=== PATIENT | male | born 1970 | race Caucasian/White ===

== ENCOUNTER → 2019-08-29 | Outpatient (REF) | payer OTHER | LOC: M SFHCCLAY 09:12 | PROVIDERS: ATTEND Family Medicine | DX: Z53.9 Procedure and treatment not carried out, unspecified reason (principal); Z00.00 Encounter for general adult medical examination without abnormal findings; Z98.84 Bariatric surgery status ==

== ENCOUNTER → 2019-08-29 | Outpatient (CLI) | payer OTHER ==
--- NOTE | 2019-08-29 10:59 | REP ---
Chest x-ray: Two views. History: Cough. The no comparison study. Findings: The lungs are well inflated and clear. The pleural angles are sharp. Heart size is normal. Pulmonary vasculature is not increased. No bony abnormalities seen. Impression: Negative chest x-ray. No infiltrate seen. Electronically Signed by Howard Sharpe MD 08/29/2019 10:51 A
== END ==
LOC: M CLY 10:38
PROVIDERS: ATTEND Family Medicine
DX: R05 Cough (principal)

== ENCOUNTER → 2019-09-29 | Outpatient (CLI) | payer OTHER ==
--- NOTE | 2019-10-11 05:57 | REP ---
Clinical: Lung nodule. Technique: Axial noncontrast images from the thoracic inlet to the upper abdomen with coronal and sagittal re-formations. Comparison: 08/14/2013 (outside examination) . Findings: The bilateral lung spears are relatively well aerated, symmetric and essentially clear. 5 mm non solid density in the periphery of the right lower lobe (image 62) is again noted and essentially unchanged in morphology. No further consolidation, significant nodule or mass lesion appreciated. No pleural effusion. No pneumothorax. Tracheobronchial tree is patent. No obvious adenopathy. The mediastinum demonstrates normal thoracic aorta, pulmonary vasculature and heart/pericardium. Surrounding musculoskeletal structures are intact. Limited upper abdomen demonstrates normal bilateral adrenal glands along with findings to suggest hepatic steatosis. Impression: 1. No acute mediastinal or pleuroparenchymal process appreciated. 2. 5 mm non solid density in the periphery of the right lower lobe remains stable as compared to 2013. No new nodule or mass lesion. Electronically Signed by Elmer Gallego MD 10/11/2019 05:48 A
== END ==
LOC: M RAD 07:45
PROVIDERS: ATTEND Family Medicine
DX: Z87.898 Personal history of other specified conditions (principal); R91.8 Other nonspecific abnormal finding of lung field

== ENCOUNTER → 2021-03-05 | Outpatient (CLI) | payer OTHER ==
[~2021-03-05] MED LIST: CAND16TA2; NOXI1TAB PO; VITATAB64 PO; VITMTA PO
--- NOTE | 2021-03-05 16:22 | REP ---
INDICATION: ELEVATED FERITIN LEVELS. COMPARISON: None. TECHNIQUE: 3T multiplanar MRI imaging of the liver was obtained using various sequences. FINDINGS: There is no abnormal liver signal "dropout" on inphase imaging. The signal throughout the liver is within normal limits. There are no filling defects seen within the gallbladder. There are a few incidental bilateral subcentimeter sized renal cysts. The pancreas and adrenal glands are within normal limits. The cortical marrow signal seen throughout the imaged osseous structures is within normal limits. There is no free fluid in the abdomen. There is no evidence of adenopathy. No pleural effusions are seen in the imaged lung spears. IMPRESSION: MRI findings are within normal limits. There is no evidence of hemochromatosis or acute disease. <Electronically signed by Karthik Lawson > 03/05/21 [id number]
== END ==
LOC: M RAD 14:16
PROVIDERS: ATTEND Specialist
DX: E83.119 Hemochromatosis, unspecified (principal)

== ENCOUNTER → 2022-04-13 | Outpatient (REF) | payer OTHER ==
[2022-04-13 11:28] LABS: HEMATOCRIT 45.3 % (42.0-52.0); HEMOGLOBIN 15.6 g/dl (13.5-17.5); MEAN CORPUSCULAR HEMOGLOBIN 33.5 pg (27.0-33.0); MEAN CORPUSCULAR HGB CONC 34.4 g/dl (32.0-36.5); MEAN CORPUSCULAR VOLUME 97.2 fl (80.0-96.0); PLATELET COUNT, AUTOMATED 217 10^3/uL (150-450); RED BLOOD COUNT 4.66 10^6/uL (4.30-6.10); WHITE BLOOD COUNT 5.1 10^3/uL (4.0-10.0)
[2022-04-13 12:04] LABS: ALT/SGPT 50 U/L (7.0-40); BILIRUBIN,TOTAL 0.6 MG/DL (0.3-1.2); BLOOD UREA NITROGEN 7 MG/DL (9-23); CARBON DIOXIDE LEVEL 29 MMOL/L (20-31); CHLORIDE LEVEL 103 MMOL/L (98-107); CHOLESTEROL LEVEL 135 MG/DL (<200); CREATININE FOR GFR 0.79 MG/DL (0.70-1.30); FREE T4 0.99 NG/DL (0.89-1.76); GLOMERULAR FILTRATION RATE > 60.0 (>56); GLUCOSE, FASTING 100 MG/DL (60-100); LDL CHOLESTEROL 80.8 MG/DL (<100); NON-HDL-C 105 MG/DL; PTH INTACT 63.1 PG/ML (18.5-88.0); SODIUM LEVEL 141 MMOL/L (136-145); THYROID STIMULATING HORMONE 1.928 uIU/ML (0.55-4.78); TRIGLYCERIDES LEVEL 121 MG/DL (<150); VITAMIN B12 LEVEL 558 PG/ML (211-911)
[2022-04-13 12:13] LABS: MAU/CREAT RATIO 2.8 MCG/MG (0.0-30.0)
[2022-04-13 12:26] LABS: HEMOGLOBIN A1c 5.2 % (4.0-6.0)
== END ==
LOC: M SFHCCLAY 07:07
PROVIDERS: ATTEND Family Medicine
DX: Z98.84 Bariatric surgery status (principal); E11.9 Type 2 diabetes mellitus without complications; I10 Essential (primary) hypertension; Z12.5 Encounter for screening for malignant neoplasm of prostate

== ENCOUNTER → 2023-08-16 | Outpatient (REF) | payer OTHER ==
[~2023-08-16] MED LIST changes: +ASCO500C3 PO; +ZINC220CA PO
[2023-08-16 12:12] LABS: HEMATOCRIT 47.9 % (42.0-52.0); HEMOGLOBIN 16.8 g/dl (13.5-17.5); MEAN CORPUSCULAR HEMOGLOBIN 33.1 pg (27.0-33.0); MEAN CORPUSCULAR HGB CONC 35.1 g/dl (32.0-36.5); MEAN CORPUSCULAR VOLUME 94.5 fl (80.0-96.0); PLATELET COUNT, AUTOMATED 217 10^3/uL (150-450); RED BLOOD COUNT 5.07 10^6/uL (4.30-6.10); WHITE BLOOD COUNT 5.4 10^3/uL (4.0-10.0)
[2023-08-16 12:33] LABS: HEMOGLOBIN A1c 5.3 % (4.0-6.0)
[2023-08-16 12:41] LABS: CREATININE, URINE 165.1 MG/DL; MAU/CREAT RATIO 101.1 MCG/MG (0.0-30.0)
[2023-08-16 12:42] LABS: ALKALINE PHOSPHATASE 94 U/L (46-116); ALT/SGPT 74 U/L (7.0-40); AST/SGOT 72 U/L (<34); BILIRUBIN,TOTAL 0.6 MG/DL (0.3-1.2); BLOOD UREA NITROGEN 7 MG/DL (9-23); CALCIUM LEVEL 8.7 MG/DL (8.5-10.1); CARBON DIOXIDE LEVEL 26 MMOL/L (20-31); CHLORIDE LEVEL 105 MMOL/L (98-107); CHOLESTEROL LEVEL 161 MG/DL (<200); CHOLESTEROL RISK RATIO 2.83 (<5); GLOMERULAR FILTRATION RATE > 60.0 (>56); GLUCOSE, FASTING 98 MG/DL (60-100); HDL CHOLESTEROL 56.7 MG/DL (>40); LDL CHOLESTEROL 74.9 MG/DL (<100); NON-HDL-C 104.3 MG/DL; POTASSIUM SERUM 4.2 MMOL/L (3.5-5.1); SODIUM LEVEL 139 MMOL/L (136-145); TOTAL PROTEIN 7.2 G/DL (5.7-8.2); TRIGLYCERIDES LEVEL 147 MG/DL (<150)
[2023-08-16 12:47] LABS: VITAMIN B12 LEVEL 282 PG/ML (211-911)
== END ==
LOC: M SFHCCLAY 07:12
PROVIDERS: ATTEND Family Medicine
DX: Z98.84 Bariatric surgery status (principal); E11.9 Type 2 diabetes mellitus without complications; I10 Essential (primary) hypertension

== ENCOUNTER → 2024-08-10 | Outpatient (CLI) | payer OTHER | LOC: M CLY 14:40 | PROVIDERS: ATTEND Physician Assistant | DX: M77.31 Calcaneal spur, right foot (principal); M19.071 Primary osteoarthritis, right ankle and foot; S99.921A Unspecified injury of right foot, initial encounter; Y93.9 Activity, unspecified; Y92.9 Unspecified place or not applicable ==